=== PATIENT | male | born 1955 | race Hispanic/Latino ===

== ENCOUNTER 2019-05-09 14:53 | Emergency (ER) | payer OTHER ==
[2019-05-09 15:13] LABS: BASOPHILS % (AUTO) 0.4 % (0.0-5.0); EOSINOPHILS % (AUTO) 2.7 % (0.0-8.0); HEMATOCRIT 42.4 % (42-54); LYMPHOCYTES % (AUTO) 15.2 % (21.0-51.0); MEAN CORPUSCULAR HEMOGLOBIN 31.8 pg (27.0-33.0); MEAN CORPUSCULAR HGB CONC 33.8 g/dL (32.0-36.0); MEAN CORPUSCULAR VOLUME 93.9 fL (79-99); NEUTROPHILS % (AUTO) 72.7 % (40.0-77.0); PLATELET COUNT (AUTO) 216 K/uL (130-400); RED BLOOD CELL COUNT(AUTO) 4.52 MIL/uL (4.50-6.20); RED CELL DISTRIBUTION WIDTH 14.7 % (11.0-15.5); WHITE BLOOD COUNT (AUTO) 7.2 K/uL (4.8-10.8)
[2019-05-09] MEDS ORDERED: NITROGLYCERIN 1GM/1 INCH PACKET TD ONE (15:14)
[2019-05-09] MEDS ORDERED: ASPIRIN 325 MG TABLET ONE (15:14)
[2019-05-09 15:22] LABS: CREATININE 1.8 mg/dL (0.5-1.5); POTASSIUM 3.7 mmol/L (3.5-5.1)
[2019-05-09 15:23] LABS: INR 0.95 (0.85-1.15); PARTIAL THROMBOPLASTIN TIME 25.6 SEC (26.3-35.5)
[2019-05-09 15:27] LABS: ALBUMIN 3.4 g/dL (3.5-5.0); BILIRUBIN,TOTAL 0.3 mg/dL (0.2-1.0); TOTAL PROTEIN, SERUM 7.2 g/dL (6.0-8.3)
[2019-05-09] MEDS ORDERED: SODIUM CHLORIDE 0.9% 1000ML 1,000 ML IV ONE (16:04)
[2019-05-09 16:30] LABS: AMPHET/METH SCREEN,URINE NEGATIVE (NEGATIVE); BARBITURATE SCREEN, URINE NEGATIVE (NEGATIVE); BENZODIAZEPINES SCREEN,URINE NEGATIVE (NEGATIVE); CANNABINOID SCREEN,URINE NEGATIVE (NEGATIVE); COCAINE SCREEN,URINE NEGATIVE (NEGATIVE); OPIATE SCREEN,URINE NEGATIVE (NEGATIVE); PHENCYCLIDINE SCREEN,URINE NEGATIVE (NEGATIVE)
[2019-05-09 16:31] LABS: APPEARANCE,URINE Clear (CLEAR); BILIRUBIN,URINE Negative (NEGATIVE); COLOR,URINE Yellow (YELLOW); GLUCOSE, URINE (UA) Negative (NEGATIVE); KETONES,URINE Negative (NEGATIVE); LEUKOCYTE ESTERASE ,URINE Negative (NEGATIVE); NITRATE,URINE Negative (NEGATIVE); OCCULT BLOOD,URINE Negative (NEGATIVE); PH,URINE 5.5 (5.0-8.0); PROTEIN,URINE Negative (NEGATIVE)
[2019-05-09 16:55] LABS: B-TYPE NATRIURETIC PEPTIDE 108 pg/mL (0-100)
== END 2019-05-09 18:15 | disposition home or self-care (01) ==
LOC: EDH 14:53
DX: I47.1 Supraventricular tachycardia (principal); N28.9 Disorder of kidney and ureter, unspecified; R03.0 Elevated blood-pressure reading, without diagnosis of hypertension; R42 Dizziness and giddiness; Z90.49 Acquired absence of other specified parts of digestive tract; Z87.891 Personal history of nicotine dependence
CPT/HCPCS: 36415; 71045; 76770; 80053; 80305; 81003; 82550; 83735; 83874 ×2; 83880; 84443; 84484 ×2; 85025; 85610; 85730; 93005 ×2; 96360; 99285; J7030

== ENCOUNTER → 2023-03-08 | Outpatient (CLI) | payer OTHER | END | disposition home or self-care (01) | LOC: SHCH 08:01 | PROVIDERS: ATTEND Student in an Organized Health Care Education/Training Program | DX: R00.2 Palpitations (principal) | CPT/HCPCS: 93306 ==

== ENCOUNTER 2024-09-12 05:39 | Day surgery (SDC) | payer OTHER ==
[2024-09-11 14:03] LABS: BASOPHILS # (AUTO) 0.09 K/uL (0.00-0.20); BASOPHILS % (AUTO) 1.1 % (0.0-5.0); EOSINOPHILS # (AUTO) 0.13 K/uL (0.00-0.70); EOSINOPHILS % (AUTO) 1.5 % (0.0-8.0); IMMATURE GRANULOCYTE ABSOLUTE 0.02 K/uL (0-1); LYMPHOCYTES # (AUTO) 1.7 K/uL (1.0-4.8); LYMPHOCYTES % (AUTO) 19.6 % (21.0-51.0); MEAN CORPUSCULAR HEMOGLOBIN 30.6 pg (27.0-33.0); MEAN CORPUSCULAR HGB CONC 33.2 g/dL (32.0-36.0); MEAN CORPUSCULAR VOLUME 92.2 fL (79-99); MONOCYTES # (AUTO) 0.8 K/uL (0.1-1.0); MONOCYTES % (AUTO) 9.1 % (3.0-13.0); NEUTROPHILS # (AUTO) 5.8 K/uL (1.8-7.7); NEUTROPHILS % (AUTO) 68.5 % (40.0-77.0); PLATELET COUNT (AUTO) 248 K/uL (130-400); RED BLOOD CELL COUNT(AUTO) 4.77 MIL/uL (4.50-6.20); RED CELL DISTRIBUTION WIDTH 13.5 % (11.0-15.5); WHITE BLOOD COUNT (AUTO) 8.4 K/uL (4.8-10.8)
[2024-09-11 14:12] LABS: CREATININE 1.2 mg/dL (0.5-1.3); POTASSIUM 4.5 mmol/L (3.5-5.1)
[2024-09-11 14:14] LABS: INR 0.96 (0.85-1.15); PROTHROMBIN TIME 10.4 SEC (9.6-11.6)
--- NOTE | 2024-09-11 14:15 | EKG ---
[facility] Test Date: 2024-09-11 Test Time: 14:48:55 Pat Name: ANGELA MORALES Department: [facility] Room: Gender: [employer] Helper: [id number] : [id number] Requested By: TERENCE TOLLIVER Order Number: [id number] Reading MD: Ronal Liu Measurements Intervals [place] Rate: 66 P: 60 FL: 164 QRS: 65 QRSD: 95 T: 58 QT: 403 QTc: 422 Interpretive Statements Sinus rhythm Compared to ECG 05/09/2019 16:54:21 No significant changes Electronically Signed On 09-11-2024 18:11:43 PRODUCTION UNDERWRITER by Ronal Liu Please click the below link to view image of tracing.
[2024-09-11 14:16] LABS: PARTIAL THROMBOPLASTIN TIME 25.9 SEC (26.3-35.5)
[2024-09-11 14:27] VITALS: BP 207/101; PULSE 78; RESP 16; TEMP 97.7
[~2024-09-12] VITALS: Ht 182.9 cm; Wt 70.0 kg
[~2024-09-12 05:39] MED LIST: PANT20TA18 PO
[2024-09-12 06:03] VITALS: BP 197/77; PULSE 72; RESP 16; TEMP 98.2
[2024-09-12] MEDS: 0.9%NACL 1000ML 1,000 ML IV SCH (06:57)
[2024-09-12] MEDS ORDERED: LIDOCAINE HCL 400MG/20ML VIAL ONE (07:08)
[2024-09-12] MEDS ORDERED: MIDAZOLAM HCL 1 MG/ML 2ML VIAL ONE ×2 (07:34→07:42)
[2024-09-12] MEDS ORDERED: FENTanyl CITRate PF 50 MCG/1 ML 2ML VIAL ONE (07:34)
[2024-09-12 08:10] VITALS: BP 155/75; PULSE 77; RESP 13; TEMP 97.4
--- NOTE | 2024-09-12 08:10 | NUR ---
DRESSING: DRESSING TO LEFT MID CHEST AREA DRY/INTACT WITH NO REDNESS/SWELLING NOTED TO SURROUNDING AREA
[2024-09-12 08:25] VITALS: BP 132/75; PULSE 74; RESP 12
[2024-09-12 08:40] VITALS: BP 144/74; PULSE 64; RESP 12
[2024-09-12 08:55] VITALS: BP 140/70; PULSE 68; RESP 13; TEMP 97.7
--- NOTE | 2024-09-12 08:55 | NUR ---
DRESSING: DRESSING TO MID CHEST AREA REMAINS DRY/INTACT WITH NO REDNESS/SWELLING NOTED TO SURROUNDING AREA
== END 2024-09-12 08:55 | disposition home or self-care (01) ==
LOC: DAH 05:39
PROVIDERS: ATTEND Student in an Organized Health Care Education/Training Program
DX: R55 Syncope and collapse (principal); R00.2 Palpitations; H81.13 Benign paroxysmal vertigo, bilateral; Z79.01 Long term (current) use of anticoagulants; Z90.49 Acquired absence of other specified parts of digestive tract; Z72.89 Other problems related to lifestyle; Z79.899 Other long term (current) drug therapy; Z98.890 Other specified postprocedural states
CPT/HCPCS: 80048; 85025; 85610; 85730; 36415; 93005; 33285; C1764; J3010; J3490; J7030; J2250 ×2; A4215; A4222; A4221; A4663; A4216; A4606; A4223 ×3; 99156; 99157